=== PATIENT | female | born 1980 | race Caucasian/White ===

== ENCOUNTER 2021-08-24 11:24 | Emergency (ER) | payer OTHER ==
[2021-08-24] MEDS ORDERED: MEDROL DOSEPAK 24 MG PO (12:23)
== END 2021-08-24 12:12 | disposition home or self-care (01) ==
LOC: ER1 11:24
DX: M54.42 Lumbago with sciatica, left side (principal); Z88.2 Allergy status to sulfonamides
CPT/HCPCS: 96372; 99283; J1100; J1885